=== PATIENT | male | born 1995 ===

== ENCOUNTER 2016-11-14 09:40 | Inpatient (IN) | payer MEDICAID ==
[2016-11-14 09:57] VITALS: O2SAT 97; BMI 29.0
[2016-11-19 07:25] VITALS: BP 100/63; PULSE 67; RESP 20; TEMP 97.8
== END 2016-11-19 13:17 | disposition home or self-care (01) | DRG 744 ==
LOC: C.ER 09:40 → C.5E 10:30
PROVIDERS: ADMIT Psychiatry & Neurology Psychiatry; ATTEND Psychiatry & Neurology Psychiatry
PROC: HZ2ZZZZ Detoxification Services for Substance Abuse Treatment (ICD-10-PCS; principal; 2016-11-14)
PROC: HZ52ZZZ Individual Psychotherapy for Substance Abuse Treatment, Cognitive-Behavioral (ICD-10-PCS; 2016-11-14)
PROC: GZHZZZZ Group Psychotherapy (ICD-10-PCS; 2016-11-14)
PROC: HZ59ZZZ Individual Psychotherapy for Substance Abuse Treatment, Supportive (ICD-10-PCS; 2016-11-14)
PROC: HZ56ZZZ Individual Psychotherapy for Substance Abuse Treatment, Psychoeducation (ICD-10-PCS; 2016-11-14)
DX: F11.23 Opioid dependence with withdrawal (principal); F33.2 Major depressive disorder, recurrent severe without psychotic features; R45.851 Suicidal ideations; B19.20 Unspecified viral hepatitis C without hepatic coma; F41.9 Anxiety disorder, unspecified; F17.210 Nicotine dependence, cigarettes, uncomplicated; Z59.0 Homelessness

== ENCOUNTER 2016-11-23 13:28 | Observation (INO) | payer MEDICAID ==
[2016-11-23 13:29] VITALS: BMI 29.0
--- NOTE | 2016-11-23 14:05 | C.PDOC ---
Addendum entered and electronically signed by Emmett Abdul MD 11/24/16 05:04: ED OBSERVATION - Progress Note Progress Note: 11/24/16 05:03 vitals stable, no complaints Physician Patient Turnover Patient Signed Over To: Charity Wilson Handoff Comments: pending evaluation by dr lopez, psychiatrist Original Note: History Of Present Illness <Beena Adames - Last Filed: 11/23/16 18:51> <Emmett Abdul - Last Filed: 11/24/16 05:03> <Charity Wilson - Last Filed: 11/24/16 08:30> Daniel Harris, a 21 year old male, presents to the ED with suicidal ideations. The patient states he was discharged from the psychiatric unit of [facility] a few days ago. Patient is known to crisis, who said he was homeless. Patient is calm in the ED sitting in the hallway. (Beena Adames) History Per: Patient History/Exam Limitations: no limitations Current Symptoms Are (Timing): Still Present Associated Symptoms: Suicidal Thoughts <Beena Adames - Last Filed: 11/23/16 18:51> <Emmett Abdul - Last Filed: 11/24/16 05:03> <Charity Wilson - Last Filed: 11/24/16 08:30> Time Seen by Provider: 11/23/16 13:51 Chief Complaint (Nursing): Psychiatric Evaluation Past Medical History Reviewed: Historical Data - Medical History PMH: Denies: HIV, Chronic Kidney Disease Family History: States: Unknown Family Hx - Social History Hx Alcohol Use: Yes Hx Substance Use: Yes - Immunization History Hx Tetanus Toxoid Vaccination: No Hx Influenza Vaccination: No Hx Pneumococcal Vaccination: No <Beena Adames - Last Filed: 11/23/16 18:51> Review Of Systems Except As Marked, All Systems Reviewed And Found Negative. Constitutional: Negative for: Fever Psych: Positive for: Suicidal ideation <Beena Adames - Last Filed: 11/23/16 18:51> Physical Exam - Physical Exam Appears: Well, Non-toxic, No Acute Distress Skin: Normal Color, Warm, Dry Head: Atraumatic, Normacephalic Eye(s): bilateral: Normal Inspection, PERRL, EOMI Ear(s): Bilateral: Normal Nose: Normal Oral Mucosa: Moist Tongue: Normal Appearing Lips: Normal Appearing Teeth: Normal Dentition Gingiva: Normal Appearing Throat: Normal Neck: Normal, Normal ROM, Supple Lymphatic: Normal Exam Cardiovascular: Rhythm Regular, No Murmur Respiratory: Normal Breath Sounds, No Rales, No Rhonchi, No Wheezing Gastrointestinal/Abdominal: Normal Exam, Bowel Sounds, Soft, No Tenderness, No Guarding, No Rebound Back: Normal Inspection, No CVA Tenderness Extremity: Normal ROM, No Tenderness, No Deformity, No Swelling Neurological/Psych: Oriented x3, Normal Speech, Normal Cognition Gait: Steady <Beena Adames - Last Filed: 11/23/16 18:51> ED Course And Treatment - Laboratory Results Result Diagrams: 11/23/16 14:13 11/23/16 14:13 Lab Interpretation: Normal O2 Sat by Pulse Oximetry: 97 (RA) Pulse Ox Interpretation: Normal Progress Note: Case discussed and patient evaluated by crisis department. Case discussed with psychiatrist Dr Jordan business applications developer who requests ED OBS and she will evaluate in AM Reassessment Condition: Unchanged - Physician Consult Information Physician Contacted: Xenia Lopez Outcome Of Conversation: keep in ED obs <Beena Adames - Last Filed: 11/23/16 18:51> - Laboratory Results Result Diagrams: 11/23/16 14:13 11/23/16 14:13 <Emmett Abdul - Last Filed: 11/24/16 05:03> - Laboratory Results Result Diagrams: 11/23/16 14:13 11/23/16 14:13 <Charity Wilson - Last Filed: 11/24/16 08:30> Medical Decision Making <Beena Adames - Last Filed: 11/23/16 18:51> <Emmett Abdul - Last Filed: 11/24/16 05:03> <Charity Wilson - Last Filed: 11/24/16 08:30> Medical Decision Makin Initial Impression: 21 year old male presenting with suicidal ideations Initial Plan: * Alcohol Serum * CMP * Drug Screen * CBC * Urinalysis * Reevaluation * * Patient on 1:1 for SI * * Evaluated multiple times by crisis team * * Remains calm requesting medication for anxiety (Beena Adames) Disposition - Disposition Disposition Time: 17:00 - POA Present On Arrival: None <Beena Adames - Last Filed: 11/23/16 18:51> <Emmett Abdul - Last Filed: 11/24/16 05:03> <Charity Wilson - Last Filed: 11/24/16 08:30> - Disposition Condition: STABLE - Clinical Impression Clinical Impression: Depression, Opioid abuse - Scribe Statement The provider has reviewed the documentation as recorded by the Scribe <Beena Adames - Last Filed: 11/23/16 18:51> <Emmett Abdul - Last Filed: 11/24/16 05:03> <Charity Wilson - Last Filed: 11/24/16 08:30> - Scribe Statement Smita Kaur All medical record entries made by the Scribe were at my direction and personally dictated by me. I have reviewed the chart and agree that the record accurately reflects my personal performance of the history, physical exam, medical decision making, and the department course for this patient. I have also personally directed, reviewed, and agree with the discharge instructions and disposition. (Beena Adames) Addendum <Beena Adames - Last Filed: 11/23/16 18:51> <Charity Wilson - Last Filed: 11/24/16 08:30> Addendum: 11/24/16 08:28 Patient endorsed to me pending re-evaluation by psych. Patient slept comfortably overnight. As per crisis patient will be transferred due to no beds. EKG NSR Chest X Ray WNL Patient medically cleared for psych admission and/or transfer (Charity Wilson)
[2016-11-23 14:17] LABS: BASO % 0.2 % (0.0-2.0); EOS # 0.1 K/uL (0.0-0.7); EOS % 1.9 % (0.0-4.0); HEMATOCRIT 46.7 % (35.0-51.0); LYMPH # 1.5 K/uL (1.0-4.3); LYMPH % 28.4 % (20.0-40.0); MEAN CELL VOLUME 89.5 fL (80.0-94.0); MEAN CORPUSCULAR HEMOGLOBIN 30.7 pg (27.0-31.0); MEAN CORPUSCULAR HGB CONC 34.3 g/dL (33.0-37.0); MEAN PLATELET VOLUME 6.7 fL (7.2-11.7); MONO # 0.5 K/uL (0.0-0.8); MONO % 10.2 % (0.0-10.0); NRBC % 0.1 % (0.0-2.0); RED CELL DISTRIBUTION WIDTH 13.6 % (11.5-14.5); WHITE BLOOD COUNT 5.3 K/uL (4.8-10.8)
[2016-11-23 14:25] LABS: CHLORIDE 99 mmol/L (98-107); POTASSIUM 3.9 mmol/L (3.6-5.2); SODIUM 139 mmol/L (132-148)
[2016-11-23 14:27] LABS: ALB/GLOB RATIO 1.2 (1.0-2.1); AST/SGOT 152 U/L (17-59); BILIRUBIN,TOTAL 1.3 mg/dL (0.2-1.3); CARBON DIOXIDE 30 mmol/L (22-30); GFR AFRICAN-AMERICAN > 60; TOTAL PROTEIN 7.4 g/dL (6.3-8.3)
[2016-11-23 14:28] LABS: ALCOHOL SERUM < 10 mg/dl (0-10); ALKALINE PHOSPHATASE 102 U/L (38-126); ALT/SGPT 321 U/L (21-72); BLOOD UREA NITROGEN 8 mg/dL (9-20); CALCIUM 9.5 mg/dl (8.6-10.4); GLUCOSE,RANDOM 96 mg/dL (75-110)
[2016-11-23 15:25] LABS: RBC URINE < 1 /hpf (0-3); URINE BILIRUBIN NEGATIVE (NEGATIVE); URINE BLOOD NEGATIVE (NEGATIVE); URINE COLOR Yellow (YELLOW); URINE GLUCOSE (UA) NORMAL (Normal); URINE KETONE TRACE mg/dL (NEGATIVE); URINE LEUKOCYTE ESTERASE NEG Leu/uL (Negative); URINE PROTEIN NEGATIVE (NEGATIVE); WBC URINE < 1 /hpf (0-5)
[2016-11-24 11:17] VITALS: BP 131/75; PULSE 100; RESP 18; TEMP 98.4; O2SAT 98
--- NOTE | 2016-11-24 12:45 | RAD ---
PROCEDURE: CHEST RADIOGRAPH, 1 VIEW HISTORY: psych clearance COMPARISON: None available. FINDINGS: LUNGS: Clear. PLEURA: No pneumothorax or pleural fluid seen. CARDIOVASCULAR: Normal. OSSEOUS STRUCTURES: No significant abnormalities. VISUALIZED UPPER ABDOMEN: Normal. OTHER FINDINGS: None. IMPRESSION: No active disease.
--- NOTE | 2016-11-25 20:51 | CARD ---
APPROVED REPORT EKG Measurement Heart [id number] <Conclusion> Normal sinus rhythm with sinus arrhythmia Minimal voltage criteria for LVH, may be normal variant High j junction maybe due to early repolarization or Acute pericarditis Abnormal ECG
== END 2016-11-24 11:30 | disposition home or self-care (01) ==
LOC: C.ER 13:28 → C.9OBSV 17:19
PROVIDERS: ADMIT Emergency Medicine; ATTEND Emergency Medicine
DX: F11.10 Opioid abuse, uncomplicated (principal); R45.851 Suicidal ideations; Z59.0 Homelessness; F32.89 Other specified depressive episodes

== ENCOUNTER 2017-07-27 20:19 | Inpatient (IN) | payer MEDICAID ==
[2017-07-27 20:19] VITALS: BMI 29.0
[2017-07-27 20:54] LABS: BASO # 0.1 K/uL (0.0-0.2); BASO % 0.5 % (0.0-2.0); EOS # 0.2 K/uL (0.0-0.7); EOS % 2.2 % (0.0-4.0); HEMOGLOBIN 17.3 g/dL (12.0-18.0); LYMPH % 29.6 % (20.0-40.0); MEAN CELL VOLUME 88.9 fL (80.0-94.0); MEAN CORPUSCULAR HEMOGLOBIN 31.1 pg (27.0-31.0); MEAN CORPUSCULAR HGB CONC 34.9 g/dL (33.0-37.0); MEAN PLATELET VOLUME 7.2 fL (7.2-11.7); MONO # 0.8 K/uL (0.0-0.8); MONO % 8.2 % (0.0-10.0); NEUT % 59.5 % (50.0-75.0); NRBC % 0.3 % (0.0-2.0); RBC 5.57 Mil/uL (4.40-5.90); RED CELL DISTRIBUTION WIDTH 13.4 % (11.5-14.5); WHITE BLOOD COUNT 10.1 K/uL (4.8-10.8)
[2017-07-27 20:58] LABS: SQUAMOUS EPITHIAL < 1 /hpf (0-5); URINE BACTERIA RARE (<OCC); URINE BILIRUBIN NEGATIVE (NEGATIVE); URINE BLOOD NEGATIVE (NEGATIVE); URINE CLARITY Hazy (Clear); URINE COLOR Amber (YELLOW); URINE GLUCOSE (UA) NORMAL (Normal); URINE LEUKOCYTE ESTERASE NEG Leu/uL (Negative); URINE PROTEIN NEGATIVE (NEGATIVE)
[2017-07-27 21:11] LABS: ALBUMIN 4.5 g/dL (3.5-5.0); ALT/SGPT 89 U/L (21-72); AST/SGOT 56 U/L (17-59); BLOOD UREA NITROGEN 12 mg/dL (9-20); CALCIUM 9.2 mg/dl (8.6-10.4); GFR AFRICAN-AMERICAN > 60; GFR NON-AFRICAN AMERICAN > 60
[2017-07-27 21:14] LABS: PHENCYCLIDINE, UR NEGATIVE (NEGATIVE)
[2017-07-27 21:15] LABS: BARBITURATES, UR POSITIVE (NEGATIVE); BENZODIAZEPINES, UR POSITIVE (NEGATIVE); OPIATES, UR POSITIVE (NEGATIVE)
--- NOTE | 2017-07-27 21:28 | C.PDOC ---
History Of Present Illness <Beena Mendez - Last Filed: 07/27/17 21:45> <Marilou Ho - Last Filed: 07/28/17 01:01> 22 year old male presents to the emergency department requesting detox from heroin and other substances. Patient confirms to using IV heroin, and has a past medical history of Hepatitis C and psychiatric depression. Patient denies other physical complaints, and suicidal/homicidal ideation. (Beena Mendez) History Per: Patient History/Exam Limitations: no limitations Current Symptoms Are (Timing): Still Present Suicide/Self Injury Attempted (Context): None <Beena Mendez - Last Filed: 07/27/17 21:45> <Marilou Ho - Last Filed: 07/28/17 01:01> Time Seen by Provider: 07/27/17 20:38 Chief Complaint (Nursing): Substance Abuse Past Medical History Reviewed: Historical Data, Nursing Documentation, Vital Signs - Medical History PMH: Depression, Hepatitis (C) Denies: Providence's Disease, Benign Prostatic Hyperplasia, Diabetes, HIV ( Tested negative), HTN, Chronic Kidney Disease, Seizures, Sexually Transmitted Disease Surgical History: No Surg Hx Family History: States: No Known Family Hx - Social History Hx Alcohol Use: No (Denied) Hx Substance Use: Yes (heroin) - Immunization History Hx Tetanus Toxoid Vaccination: No Hx Influenza Vaccination: No Hx Pneumococcal Vaccination: No <Beena Mendez - Last Filed: 07/27/17 21:45> Vital Signs: Last Vital Signs Temp 98.7 F 07/27/17 22:23 Pulse 100 H 07/27/17 22:23 Resp 18 07/27/17 22:23 BP 115/73 07/27/17 22:23 Pulse Ox 98 07/27/17 22:23 - [facility] Procedures DETOXIFICATION SERVICES FOR SUBSTANCE ABUSE TREATMENT (04/21/17) GROUP VP REVENUE CYCLE FOR SUBSTANCE ABUSE TREATMENT, PSYCHOEDUCATION (04/21/17) GROUP VP REVENUE CYCLE FOR SUBSTANCE ABUSE, COGNITIVE BEHAVIORAL (04/21/17) GROUP PSYCHOTHERAPY (11/14/16) INDIV PSYCHOTHERAPY FOR SUBSTANCE ABUSE TREATMENT, SUPPORT (04/21/17) INDIV PSYCHOTHERAPY FOR SUBSTANCE ABUSE, COGNITIV BEHAVIORAL (04/21/17) INDIV PSYCHOTHERAPY FOR SUBSTANCE ABUSE, PSYCHOEDUCATION (04/21/17) Review Of Systems Psych: Negative for: Suicidal ideation, Other (homicidal ideation) <Beena Mendez - Last Filed: 07/27/17 21:45> Physical Exam - Physical Exam Appears: Non-toxic Skin: No Rash Head: Atraumatic, Normacephalic Eye(s): bilateral: PERRL, EOMI Neck: Supple Cardiovascular: Rhythm Regular Respiratory: Normal Breath Sounds Gastrointestinal/Abdominal: Normal Exam, Soft, No Tenderness Extremity: Other (visible syringe sharp on antecubital fossa of both arms, uninfected.) <Beena Mendez - Last Filed: 07/27/17 21:45> ED Course And Treatment - Laboratory Results Result Diagrams: 07/27/17 20:49 07/27/17 20:49 O2 Sat by Pulse Oximetry: 97 (RA) Pulse Ox Interpretation: Normal Progress Note: Plan: Alcohol Serum. CMP. CBC. Drug Screen. Urinalysis <Beena Mendez - Last Filed: 07/27/17 21:45> - Laboratory Results Result Diagrams: 07/27/17 20:49 07/27/17 20:49 <Marilou Ho E - Last Filed: 07/28/17 01:01> Disposition <Beena Mendez - Last Filed: 07/27/17 21:45> - Disposition Disposition Time: 01:00 <Marilou Ho - Last Filed: 07/28/17 01:01> - Disposition Condition: STABLE - Clinical Impression Clinical Impression: Drug abuse - PA / CAPACITOR TESTER / Resident Statement CHRISSY has reviewed & agrees with the documentation as recorded. - Scribe Statement The provider has reviewed the documentation as recorded by the Scribe (Jose Sumnerqvi) <Beena Mendez - Last Filed: 07/27/17 21:45> - PA / CAPACITOR TESTER / Resident Statement CHRISSY has reviewed & agrees with the documentation as recorded. <Marilou Ho - Last Filed: 07/28/17 01:01> - Scribe Statement All medical record entries made by the Scribe were at my direction and personally dictated by me. I have reviewed the chart and agree that the record accurately reflects my personal performance of the history, physical exam, medical decision making, and the department course for this patient. I have also personally directed, reviewed, and agree with the discharge instructions and disposition. 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 <Marilou Ho E - Last Filed: 07/28/17 01:01>
--- NOTE | 2017-07-28 02:52 | PCM.BM ---
<Caroline Dolan - Last Filed: 07/28/17 02:51> Treatment Plan Problems - Problems identified on initial assessmt Ineffective Coping Skills Date Initiated: 07/28/17 Time Initiated: 02:52 Assessment reference: NA Status: Active Treatment assets and liabiliti Patient Assests: cognitively intact, cooperative, insightful, motivated, self- reliant, ADL independent, physically healthy Patient Liabilities: substance abuse - Milieu Protocol Maintain good personal hygiene: daily Encourage regular showers, daily Remind patient to perform daily oral care, other Assist patient to perform ADL's Maintain personal safety: every shift Educate patient to report safety concerns to staff, every shift Monitor environment for contraband/sharps Medication safety: Monitor for expected outcome, potential side effects: every shift, Assess barriers to learning: every shift, Assess readiness for medication education: every shift <Greg Ascencio - Last Filed: 07/28/17 13:20> - Diagnosis (1) Opioid use disorder, severe, dependence Status: Acute Interventions: 07/28/17 13:20 * Assess 7x/week regarding severity of withdrawal * Educate regarding risks, benefits, side effects and alternatives of medications * Use Motivational Interviewing for abstinence * Use CBT for relapse prevention * Medication management for withdrawal symptoms * Encourage medication assisted treatment * <Emma Purvis - Last Filed: 07/31/17 07:54> Family Contact Family involvement: Phoebe/SO not involved - Goals for Treatment Patient goals for treatment: Complete detox and transition to IOP. Discharge/Continuing Care - Education Needs Education Needs: Patient Medication, Patient Diagnosis/Disease Process, Patient Coping Skills, Patient Anger Management skills, Patient Placement options, Patient Community resources - Discharge Discharge Criteria: No longer exhibiting s/s of withdrawal, Reduction of target symptoms Discharge to:: Home - Treatment Team Participation Patient/Family/SO Statement: 07/31/17 07:53 "I wanna go to IOP at [facility]." Discussed with Family/SO: No Was Patient/Family/SO present at Treatment Team Meeting: Yes
[2017-07-28] MEDS ORDERED: Aluminum Hydroxide/Magnesium Hydroxide Susp (30 mL) PO PRN (12:05)
--- NOTE | 2017-07-28 12:11 | PCM.PSYCH ---
Initial Psychiatric Evaluation - Initial Psychiatric Evaluation Type of Admission: Voluntary Legal Status: Capacity Chief Complaint (in patient's own words): "heroin" History of Present Illness and Precipitating Events: The patient is seen, chart reviewed and case discussed. This a 22-year-old male, lives with father and sometimes with his friend. 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 He is known from previous admission. The patient was here for detox last year and he was supposed to go to [facility] in [place] but he states he did not go. He relapsed within the few weeks and since then he has been using 12 backs IV heroine, intranasal cocaine which she stopped about a month ago marijuana which he also stopped 2 weeks ago and finally Xanax 10 mg a day. Next line he reports some withdrawal symptoms already. He now states he really wants to go to a rehabilitation. This is his second detox. He started all drugs 3 years ago Denies psychiatric problems Past psych hx: Used seroquel and xanax for general anxiety and mild depression Medical hx: Hep C Family psych hx: Denies Current Medications: Active Medications Generic Name Dose Route Start Last Admin Trade Name Freq PRN Reason Stop Dose Admin Al Hydrox/Mg Hydrox/Simethicone 30 ml 07/28/17 12:05 Maalox 30 Ml PO TID PRN Indigestion / Heartburn Chlordiazepoxide 0 mg 07/28/17 12:00 Librium PO 08/02/17 11:59 Q6 EDMOND Taper Chlordiazepoxide 25 mg 07/28/17 12:06 Librium PO Q4H PRN Alcohol Withdrawal Clonidine HCl 0.1 mg 07/28/17 12:05 Catapres PO Q8 PRN COWS Score More or Equal to 5 Gabapentin 300 mg 07/28/17 18:00 Neurontin PO BID EDMOND Hydroxyzine HCl 25 mg 07/28/17 12:08 Atarax PO Q6H PRN Anxiety Ibuprofen 600 mg 07/28/17 12:08 Motrin Tab PO Q6H PRN Pain, moderate (4-7) Loperamide HCl 2 mg 07/28/17 12:05 Imodium PO Q8 PRN Diarrhea Ondansetron HCl 4 mg 07/28/17 12:05 Zofran Tab PO Q8 PRN Nausea/Vomiting Trazodone HCl 50 mg 07/28/17 22:00 Desyrel PO HS [facility] Past Psychiatric History - Past Psychiatric History Previous Treatment History: None Pertinent Medical Hx (Current Medical&Sleep Prob, Allergies): Allergies Allergy/AdvReac Type Severity Reaction Status Date / Time No Known Allergies Allergy Verified 07/27/17 20:32 QUEtiapine [SEROquel] 100 mg PO TID 11/24/16 Alprazolam [Xanax] 1 tab PO DAILY PRN 07/27/17 Escitalopram [Lexapro] 20 mg PO DAILY 07/27/17 Review of Systems - Psychiatric Psychiatric: Abnormal Sleep Pattern, Anxiety, Difficulty Concentrating. absent : Homicidal Ideation, Paranoia, Suicidal Ideation Mental Status Examination - Personal Presentation Personal Presentation: Looks older than stated age - Affect Affect: Constricted - Reliability in Providing Information Reliability in Providing Information: Good - Speech Speech: Organized - Mood Mood: Anxious - Formal Thought Process Formal Thought Process: No Impairment - Cognitive Functions Orientation: Person, Place, Situation, Time Sensorium: Alert Attention/Concentration: Easily distracted Abstract Thinking: [place] Estimate of Intelligence: Average Judgement: Intact, as evidence by: Insight regarding need for hospitalization Memory: Recent intact, as evidence by: Ability to recall events of the day, Remote intact, as evidenced by: Abilit to recall sig. 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 Attend groups and activities Supportive therapy and psychoeducation PA for abstinence CBT for relapse prevention Encourage MAT Refer to rehab or IOP, and self-help groups Smoking cessation with PA Nicotine patch if needed 34 min Projected ELOS: 4-5 days Prognosis: good w treatment Discharge Plan and Discharge Criteria: Rehab referral, consider [facility]At - Smoking Cessation Smoking Cessation Initiated: Yes
--- NOTE | 2017-07-29 12:41 | PCM.PYCHPN ---
Psychiatric Progress Note - Psychiatric Progress Note Patient seen today, length of contact: 16 min Patient Chief Complaint: "I couldn't sleep" Problems Identified/Issues Discussed: The pt is seen, chart reviewed, case discussed with staff. Support given, CBT and [place] used briefly No new symptoms reported, improving slowly and needs more time No SEs from medications, risks discussed. After care discussed Medication Change: Yes (detox changes daily) Medical Record Reviewed: Yes Mental Status Examination - Cognitive Function Orientation: Person, Place, Situation, Time Memory: Intact Attention: WNL Concentration: Poor Association: WNL Fund of Knowledge: WNL - Mood Mood: Anxious - Affect Affect: Constricted - Speech Speech: Appropriate - Formal Thought Process Formal Thought Process: No Impairment - Suicidal Ideation Suicidal Ideation: No - Homicidal Ideation Homicidal Ideation: No Goal/Treatment Plan - Goal/Treatment Plan Need for Continued Stay: Discharge may exacerbated symptoms, Severe functional impairment Progress Toward Problem(s) and Goals/Treatment Plan: Taper with methadone Taper with librium for benzos Gabapentin for augmentation if needed As needed medications All risks, benefits and alternatives of the meds discussed, and the pt agreed and understood. Attend groups and activities Supportive therapy and psychoeducation [place] for abstinence CBT for relapse prevention Encourage MAT Refer to rehab or IOP, and self-help groups Smoking cessation with [place] Nicotine patch if needed
--- NOTE | 2017-07-30 16:24 | PCM.PYCHPN ---
Psychiatric Progress Note - Psychiatric Progress Note Patient seen today, length of contact: 16 min Patient Chief Complaint: "I am doing okay." Problems Identified/Issues Discussed: The pt is seen, chart reviewed, case discussed with staff. Patient states his sleep has improved. Support given, CBT and [place] used briefly No new symptoms reported, improving slowly and needs more time No SEs from medications, risks discussed. Medication Change: Yes (detox changes daily) Medical Record Reviewed: Yes Mental Status Examination - Cognitive Function Orientation: Person, Place, Situation, Time Memory: Intact Attention: WNL Concentration: Poor Association: WNL Fund of Knowledge: WNL - Mood Mood: Neutral - Affect Affect: Broad - Speech Speech: Appropriate - Formal Thought Process Formal Thought Process: No Impairment - Suicidal Ideation Suicidal Ideation: No - Homicidal Ideation Homicidal Ideation: No Goal/Treatment Plan - Goal/Treatment Plan Need for Continued Stay: Discharge may exacerbated symptoms, Severe functional impairment Progress Toward Problem(s) and Goals/Treatment Plan: Continue methadone taper Continue librium taper Continue other medications Support and psychoeducation daily Attend groups and activities daily After care planning by KAYLEY
--- NOTE | 2017-07-31 13:01 | PCM.PYCHPN ---
Psychiatric Progress Note - Psychiatric Progress Note Patient seen today, length of contact: 16 min Patient Chief Complaint: "I am OK" Problems Identified/Issues Discussed: The pt is seen, chart reviewed, case discussed with staff. Support given, CBT and [place] used briefly No new symptoms reported, improving slowly and needs more time No SEs from medications, risks discussed. After care discussed Medication Change: Yes (detox changes daily) Medical Record Reviewed: Yes Mental Status Examination - Cognitive Function Orientation: Person, Place, Situation, Time Memory: Intact Attention: WNL Concentration: Poor Association: WNL Fund of Knowledge: WNL - Mood Mood: Neutral - Affect Affect: Broad - Speech Speech: Appropriate - Formal Thought Process Formal Thought Process: No Impairment - Suicidal Ideation Suicidal Ideation: No - Homicidal Ideation Homicidal Ideation: No Goal/Treatment Plan - Goal/Treatment Plan Need for Continued Stay: Discharge may exacerbated symptoms, Severe functional impairment Progress Toward Problem(s) and Goals/Treatment Plan: Continue methadone taper Continue librium taper Continue other medications Support and psychoeducation daily Attend groups and activities daily After care planning by KAYLEY
[2017-07-31 13:51] VITALS: RESP 18; O2SAT 98
[2017-07-31 16:15] VITALS: BP 120/74; PULSE 98; TEMP 98.4
--- NOTE | 2017-07-31 22:28 | PCM.PYCHDC ---
Mental Status Examination - Mental Status Examination Orientation: Person, Place, Situation, Time Memory: Intact Mood: Anxious Affect: Broad Speech: Appropriate Attention: WNL Concentration: WNL Association: WNL Fund of Knowledge: WNL Formal Thought Process: No Impairment Suicidal Ideation: No Current Homicidal Ideation?: No Discharge Summary - Discharge Note Reason for Hospitalization: Opioid detox Consultations:: List each consultation separately and include: 1. Reason for request. 2. Findings. 3. Follow-up Summary of Hospital Course include:: 1. Description of specific treatment plan utilized for patients during their course of treatmen. 2. Summarize the time- course for resolution of acute symptoms and/or regressed behaviors. 3. Describe issues identified and worked on during hospitalization. 4. Describe medication utilized. 5. Describe medical problems identified and treated. 6. Reassessment of suicide risk Summary of Hospital Course: The patient is seen, chart reviewed and case discussed. On admission: This a 22-year-old male, lives with father and sometimes with his friend. 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 He is known from previous admission. The patient was here for detox last year and he was supposed to go to [facility] in [place] but he states he did not go. He relapsed within the few weeks and since then he has been using 12 backs IV heroine, intranasal cocaine which she stopped about a month ago marijuana which he also stopped 2 weeks ago and finally Xanax 10 mg a day. Next line he reports some withdrawal symptoms already. He now states he really wants to go to a rehabilitation. This is his second detox. He started all drugs 3 years ago Denies psychiatric problems Past psych hx: Used seroquel and xanax for general anxiety and mild depression Medical hx: Hep C Family psych hx: Denies Hospital course: The pt was admitted and started on treatment with psychotherapy, support, psychoeducation and medications. GA and CBT used. The pt attended groups and activities, as well as milieu therapy. All the risks and benefits of medications are discussed and the patient understood and agreed. The pt improved with the treatments provided. After care discussed with the patient. He agreed to go to [facility] but he may be arrested as he had been skipping probation for the last 6 months. He also hooked u with another pt and left 1 day early. 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 Follow after care plan as discussed. Use relapse prevention skills Return to ER or call 911 if suicidal, homicidal or symptoms relapse. Stay away from stress, alcohol and drugs. See primary doctor regularly and get labs.
== END 2017-07-31 18:12 | disposition home or self-care (01) | DRG 744 ==
LOC: C.ER 20:19 → C.7D 07-28 02:13
PROVIDERS: ADMIT Psychiatry & Neurology Psychiatry; ATTEND Psychiatry & Neurology Psychiatry
PROC: HZ2ZZZZ Detoxification Services for Substance Abuse Treatment (ICD-10-PCS; principal; 2017-07-28)
PROC: HZ52ZZZ Individual Psychotherapy for Substance Abuse Treatment, Cognitive-Behavioral (ICD-10-PCS; 2017-07-28)
PROC: HZ59ZZZ Individual Psychotherapy for Substance Abuse Treatment, Supportive (ICD-10-PCS; 2017-07-28)
PROC: HZ56ZZZ Individual Psychotherapy for Substance Abuse Treatment, Psychoeducation (ICD-10-PCS; 2017-07-28)
PROC: HZ42ZZZ Group Counseling for Substance Abuse Treatment, Cognitive-Behavioral (ICD-10-PCS; 2017-07-28)
PROC: HZ46ZZZ Group Counseling for Substance Abuse Treatment, Psychoeducation (ICD-10-PCS; 2017-07-28)
DX: F11.23 Opioid dependence with withdrawal (principal); N18.9 Chronic kidney disease, unspecified; E11.22 Type 2 diabetes mellitus with diabetic chronic kidney disease; E27.1 Primary adrenocortical insufficiency; B19.20 Unspecified viral hepatitis C without hepatic coma; F13.230 Sedative, hypnotic or anxiolytic dependence with withdrawal, uncomplicated; F12.90 Cannabis use, unspecified, uncomplicated; F14.90 Cocaine use, unspecified, uncomplicated; F41.1 Generalized anxiety disorder; I12.9 Hypertensive chronic kidney disease with stage 1 through stage 4 chronic kidney disease, or unspecified chronic kidney disease; F32.9 Major depressive disorder, single episode, unspecified; Z86.19 Personal history of other infectious and parasitic diseases

== ENCOUNTER 2017-09-15 14:53 | Inpatient (IN) | payer MEDICAID ==
[2017-09-15 14:53] VITALS: BMI 29.0
[2017-09-15 15:37] LABS: BASO % 0.4 % (0.0-2.0); EOS # 0.1 K/uL (0.0-0.7); EOS % 2.7 % (0.0-4.0); LYMPH # 2.6 K/uL (1.0-4.3); LYMPH % 50.3 % (20.0-40.0); MEAN CELL VOLUME 89.6 fL (80.0-94.0); MEAN CORPUSCULAR HEMOGLOBIN 31.3 pg (27.0-31.0); MEAN CORPUSCULAR HGB CONC 34.9 g/dL (33.0-37.0); MEAN PLATELET VOLUME 7.1 fL (7.2-11.7); MONO # 0.6 K/uL (0.0-0.8); MONO % 11.1 % (0.0-10.0); NEUT # 1.9 K/uL (1.8-7.0); NEUT % 35.5 % (50.0-75.0); NRBC % 0.1 % (0.0-2.0); RBC 4.58 Mil/uL (4.40-5.90); RED CELL DISTRIBUTION WIDTH 13.7 % (11.5-14.5); WHITE BLOOD COUNT 5.3 K/uL (4.8-10.8)
[2017-09-15 15:41] LABS: URINE BACTERIA RARE (<OCC); URINE BILIRUBIN NEGATIVE (NEGATIVE); URINE BLOOD NEGATIVE (NEGATIVE); URINE CALCIUM OXALATE CRYSTALS RARE /hpf (<OCC); URINE CLARITY Clear (Clear); URINE COLOR Yellow (YELLOW); URINE GLUCOSE (UA) NORMAL (Normal); URINE LEUKOCYTE ESTERASE NEG Leu/uL (Negative); URINE PROTEIN NEGATIVE (NEGATIVE); URINE UROBILINOGEN NORMAL mg/dL (0.2-1.0)
[2017-09-15 15:46] LABS: HEMOGLOBIN 14.3 g/dL (12.0-18.0)
[2017-09-15 15:54] LABS: ALBUMIN 3.6 g/dL (3.5-5.0); ALT/SGPT 117 U/L (21-72); AST/SGOT 58 U/L (17-59); BARBITURATES, UR NEGATIVE (NEGATIVE); BLOOD UREA NITROGEN 7 mg/dL (9-20); CALCIUM 8.8 mg/dl (8.6-10.4); GFR AFRICAN-AMERICAN > 60; GFR NON-AFRICAN AMERICAN > 60; PHENCYCLIDINE, UR NEGATIVE (NEGATIVE)
[2017-09-15 15:55] LABS: BENZODIAZEPINES, UR POSITIVE (NEGATIVE); OPIATES, UR POSITIVE (NEGATIVE)
--- NOTE | 2017-09-15 16:26 | C.PDOC ---
History Of Present Illness 22 year old male presents to ED requesting detox from heroin and xanax. He last used heroin today at noon and xanax yesterday. Denies any alcohol or other drug use. Denies any suicidal or homicidal ideation. Time Seen by Provider: 09/15/17 15:16 Chief Complaint (Nursing): Medical Clearance History Per: Patient History/Exam Limitations: no limitations Suicide/Self Injury Attempted (Context): None Past Medical History Reviewed: Historical Data, Nursing Documentation, Vital Signs Vital Signs: Last Vital Signs Temp 98.3 F 09/15/17 14:58 Pulse 93 H 09/15/17 14:58 Resp 20 09/15/17 14:58 BP 117/72 09/15/17 14:58 Pulse Ox 100 09/15/17 16:26 - Medical History PMH: Anxiety, Depression, Hepatitis (Hep C) - [facility] Procedures DETOXIFICATION SERVICES FOR SUBSTANCE ABUSE TREATMENT (07/28/17) GROUP CHAIN TESTING MACHINE OPERATOR FOR SUBSTANCE ABUSE TREATMENT, PSYCHOEDUCATION (07/28/17) GROUP CHAIN TESTING MACHINE OPERATOR FOR SUBSTANCE ABUSE, COGNITIVE BEHAVIORAL (07/28/17) GROUP PSYCHOTHERAPY (11/14/16) INDIV PSYCHOTHERAPY FOR SUBSTANCE ABUSE TREATMENT, SUPPORT (07/28/17) INDIV PSYCHOTHERAPY FOR SUBSTANCE ABUSE, COGNITIV BEHAVIORAL (07/28/17) INDIV PSYCHOTHERAPY FOR SUBSTANCE ABUSE, PSYCHOEDUCATION (07/28/17) Family History: States: Unknown Family Hx - Social History Hx Alcohol Use: Yes (occasional 1-2X a year) Hx Substance Use: Yes - Immunization History Hx Tetanus Toxoid Vaccination: No Hx Influenza Vaccination: No Hx Pneumococcal Vaccination: No Review Of Systems Except As Marked, All Systems Reviewed And Found Negative. Psych: Positive for: Other (drug abuse) Physical Exam - Physical Exam Appears: Non-toxic, No Acute Distress Skin: Warm, Dry Head: Atraumatic, Normacephalic Eye(s): bilateral: Normal Inspection Neck: Normal ROM Chest: Symmetrical Cardiovascular: Rhythm Regular Respiratory: Normal Breath Sounds, No Wheezing Extremity: Bilateral: Atraumatic, Normal ROM Neurological/Psych: Oriented x3, Normal Speech ED Course And Treatment - Laboratory Results Result Diagrams: 09/15/17 15:31 09/15/17 15:31 O2 Sat by Pulse Oximetry: 100 Medical Decision Making Medical Decision Making: Labs ordered for medical clearance. All labs reviewed. UDS +opiate, benzo and cannabis. In my clinical judgment patient is medically cleared and stable for admission. delinquency prevention social worker contacted for evaluation. As per Ping patient is to be admitted to DR Ascencio service for opiate use disorder Disposition - Disposition Disposition: HOSPITALIZED Disposition Time: 16:32 Condition: STABLE - POA Present On Arrival: None - Clinical Impression Clinical Impression: Opioid use disorder, severe, dependence, Benzodiazepine abuse Decision To Admit - Pt Status Changed To: Hospital Disposition Of: Inpatient - Admit Certification Admit to Inpatient:: After my assessment, the patient will require hospitalization for at least two midnights. This is because of the severity of symptoms shown, intensity of services needed, and/or the medical risk in this patient being treated as an outpatient. - InPatient: Physician Admission Certification: I certify that this patient requires 2 or more midnights of care for the following reason:: Patient needs inpatient detox for opiate and benzo use - . Bed Request Type: Detox Admitting Physician: Greg Ascencio Patient Diagnosis: Opioid use disorder, severe, dependence, Benzodiazepine abuse
--- NOTE | 2017-09-15 17:29 | PCM.BM ---
<Diana Ríos - Last Filed: 09/15/17 17:27> Treatment Plan Problems - Problems identified on initial assessmt Potential for benzo withdrawal Date Initiated: 09/15/17 Time Initiated: 17:28 Assessment reference: NA Status: Active Priority: 1 Potential for opiate withdrawal Date Initiated: 09/15/17 Time Initiated: 17:28 Assessment reference: NA Status: Active Priority: 2 Treatment assets and liabiliti Patient Assests: cooperative, insightful, motivated, self-reliant, ADL independent, physically healthy, cognitively intact Patient Liabilities: substance abuse, other (homeless) - Milieu Protocol Maintain good personal hygiene: daily Encourage regular showers, daily Remind patient to perform daily oral care, daily Assist patient to perform ADL's Conduct patient checks and document Observation sheet: Q15 minutes Maintain personal safety: every shift Educate patient to report safety concerns to staff, every shift Monitor environment for contraband/sharps Medication safety: Monitor for expected outcome, potential side effects: every shift, Assess barriers to learning: every shift, Assess readiness for medication education: every shift <Greg Ascencio - Last Filed: 09/16/17 13:45> - Diagnosis (1) Opioid use disorder, severe, dependence Status: Acute Interventions: 09/16/17 13:46 * Assess 7x/week regarding severity of withdrawal * Educate regarding risks, benefits, side effects and alternatives of medications * Use Motivational Interviewing for abstinence * Use CBT for relapse prevention * Medication management for withdrawal symptoms * Encourage medication assisted treatment * <Emma Purvis - Last Filed: 09/17/17 08:10> Family Contact Family involvement: Mikiliy/SO not involved - Goals for Treatment Patient goals for treatment: Complete detox and transition to LTR at [facility]. Discharge/Continuing Care - Education Needs Education Needs: Patient Medication, Patient Diagnosis/Disease Process, Patient Coping Skills, Patient Anger Management skills, Patient Placement options, Patient Community resources - Discharge Discharge Criteria: No longer exhibiting s/s of withdrawal, Reduction of target symptoms Discharge to:: Substance Abuse Rehab - Treatment Team Participation Patient/Family/SO Statement: 09/17/17 08:10 "I wanna try to get in to the [facility] if I can..." Discussed with Family/SO: No Was Patient/Family/SO present at Treatment Team Meeting: Yes
[2017-09-16] MEDS ORDERED: Buprenorphine Hydrochloride 2 mg SL ONE ×2 (10:18→11:30)
--- NOTE | 2017-09-16 13:47 | PCM.PSYCH ---
Initial Psychiatric Evaluation - Initial Psychiatric Evaluation Type of Admission: Voluntary Legal Status: Capacity Chief Complaint (in patient's own words): "I relapsed" History of Present Illness and Precipitating Events: The patient is seen, chart reviewed and case discussed. 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 He is known from previous admissions. The patient was here for detox few months ago and he was supposed to go to [facility] in [place] but he states he did not go. He relapsed within the few days and since then he has been using less than 5 bags IV heroin, intranasal cocaine and smoke marijuana. He reports some withdrawal symptoms already. He now states he really wants to go to a rehab or IOP and that he will follow this time b/c he relapsed many times. This is his third detox. He started all drugs 3 years ago Denies psychiatric problems but anxiety and takes lexapro Past psych hx: Used seroquel and xanax for general anxiety and mild depression Medical hx: Hep C Family psych hx: Denies Current Medications: Active Medications Generic Name Dose Route Start Last Admin Trade Name Freq PRN Reason Stop Dose Admin Buprenorphine HCl 0 mg 09/17/17 10:00 Subutex SL 09/20/17 09:59 .TAPER EDMOND Taper Clonidine HCl 0.1 mg 09/15/17 17:29 Catapres PO Q8 PRN COWS Score More or Equal to 5 Escitalopram Oxalate 20 mg 09/16/17 10:00 09/16/17 09:20 Lexapro PO 20 mg DAILY EDMOND Administration Hydroxyzine HCl 25 mg 09/15/17 17:28 09/15/17 21:10 Atarax PO 25 mg Q4H PRN Administration Anxiety Ibuprofen 600 mg 09/15/17 17:28 Motrin Tab PO Q6H PRN Pain, moderate (4-7) Loperamide HCl 2 mg 09/15/17 17:29 Imodium PO Q8 PRN Diarrhea Ondansetron HCl 4 mg 09/15/17 17:29 Zofran Tab PO Q8 PRN Nausea/Vomiting Quetiapine Fumarate 100 mg 09/15/17 22:00 09/15/17 21:10 Seroquel PO 100 mg HS EDMOND Administration Trazodone HCl 100 mg 09/15/17 17:28 09/15/17 21:10 Desyrel PO 100 mg HS PRN Administration Insomnia Past Psychiatric History - Past Psychiatric History Previous Treatment History: Inpatient Pertinent Medical Hx (Current Medical&Sleep Prob, Allergies): Allergies Allergy/AdvReac Type Severity Reaction Status Date / Time No Known Allergies Allergy Verified 09/15/17 15:02 QUEtiapine [SEROquel] 100 mg PO TID 11/24/16 Alprazolam [Xanax] 1 tab PO DAILY PRN 07/27/17 Escitalopram [Lexapro] 20 mg PO DAILY 07/27/17 Review of Systems - Neurological Neurological: UNREMARKABLE - Psychiatric Psychiatric: Abnormal Sleep Pattern, Anxiety, Difficulty Concentrating, Irritability. absent: Hallucinations, Homicidal Ideation, Suicidal Ideation Mental Status Examination - Personal Presentation Personal Presentation: Looks stated age - Affect Affect: Constricted - Motor Activity Motor Activity: Calm - Reliability in Providing Information Reliability in Providing Information: Good - Speech Speech: Organized - Mood Mood: Anxious - Formal Thought Process Formal Thought Process: No Impairment - Cognitive Functions Orientation: Person, Place, Situation, Time Sensorium: Alert Attention/Concentration: Attentive Estimate of Intelligence: Average Judgement: Intact, as evidence by: Insight regarding need for hospitalization Memory: Recent intact, as evidence by: Ability to recall events of the day, Remote intact, as evidenced by: Abilit to recall sig. 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 Attend groups and activities Supportive therapy and psychoeducation [place] for abstinence CBT for relapse prevention Encourage MAT Refer to rehab or IOP, and self-help groups Smoking cessation with [place] Nicotine patch if needed 33 min Projected ELOS: 4 days - Smoking Cessation Smoking Cessation Initiated: Yes
[2017-09-17] MEDS: Buprenorphine Hydrochloride 2 mg SL SCH (09:34)
--- NOTE | 2017-09-17 16:47 | PCM.PYCHPN ---
Psychiatric Progress Note - Psychiatric Progress Note Patient seen today, length of contact: 16 min Patient Chief Complaint: "I am good" Problems Identified/Issues Discussed: The pt is seen, chart reviewed, case discussed with staff. The pt is compliant with medications and reports no side-effects. Symptoms are improving but needs more time to stabilize. After care discussed, support and psychoeducation given. Medication Change: Yes (detox changes daily) Medical Record Reviewed: Yes Mental Status Examination - Cognitive Function Orientation: Person, Place, Situation, Time Memory: Intact Attention: WNL Concentration: WNL Association: WNL Fund of Knowledge: WNL - Mood Mood: Anxious - Affect Affect: Constricted - Speech Speech: Appropriate - Formal Thought Process Formal Thought Process: No Impairment - Suicidal Ideation Suicidal Ideation: No - Homicidal Ideation Homicidal Ideation: No Goal/Treatment Plan - Goal/Treatment Plan Need for Continued Stay: Discharge may exacerbated symptoms, Severe functional impairment Progress Toward Problem(s) and Goals/Treatment Plan: Taper with subutex or methadone Taper with librium for benzos Gabapentin for augmentation if needed Continue Lexapro 20 mg As needed medications All risks, benefits and alternatives of the meds discussed, and the pt agreed and understood. Attend groups and activities Supportive therapy and psychoeducation [place] for abstinence CBT for relapse prevention Encourage MAT Refer to rehab or IOP, and self-help groups Smoking cessation with [place] Nicotine patch if needed Estimated Date of D/C: 09/19/17 - Smoking Cessation Smoking Cessation Initiated: Yes
[2017-09-18] MEDS: Buprenorphine Hydrochloride 2 mg SL SCH (09:41)
--- NOTE | 2017-09-18 11:58 | PCM.PYCHPN ---
Psychiatric Progress Note - Psychiatric Progress Note Patient seen today, length of contact: 15 min Patient Chief Complaint: "I feel better" Problems Identified/Issues Discussed: The pt is seen, chart reviewed, case discussed with staff. Support and psychoeducation given, CBT and [place] used briefly No new symptoms reported, improving slowly and needs more time No SEs from medications, risks discussed. After care discussed - going to [place] rehab tomorrow but very early. Medication Change: Yes (detox changes daily) Medical Record Reviewed: Yes Mental Status Examination - Cognitive Function Orientation: Person, Place, Situation, Time Memory: Intact Attention: WNL Concentration: WNL Association: WNL Fund of Knowledge: WNL - Mood Mood: Anxious - Affect Affect: Constricted - Speech Speech: Appropriate - Formal Thought Process Formal Thought Process: No Impairment - Suicidal Ideation Suicidal Ideation: No - Homicidal Ideation Homicidal Ideation: No Goal/Treatment Plan - Goal/Treatment Plan Need for Continued Stay: Discharge may exacerbated symptoms, Severe functional impairment Progress Toward Problem(s) and Goals/Treatment Plan: Taper with subutex or methadone Taper with librium for benzos Gabapentin for augmentation if needed Continue Lexapro 20 mg As needed medications All risks, benefits and alternatives of the meds discussed, and the pt agreed and understood. Attend groups and activities Supportive therapy and psychoeducation [place] for abstinence CBT for relapse prevention Encourage MAT Refer to rehab or IOP, and self-help groups Smoking cessation with [place] Nicotine patch if needed Estimated Date of D/C: 09/19/17
[2017-09-18 16:42] VITALS: RESP 18
[2017-09-19] MEDS ORDERED: Buprenorphine Hydrochloride 2 mg SL ONE (04:30)
[2017-09-19 05:12] VITALS: BP 110/68; PULSE 80; TEMP 97.6; O2SAT 100
--- NOTE | 2017-09-19 08:29 | PCM.PYCHDC ---
Mental Status Examination - Mental Status Examination Orientation: Person, Place, Situation, Time Memory: Intact Mood: Anxious Affect: Constricted Speech: Appropriate Attention: WNL Concentration: WNL Association: WNL Fund of Knowledge: WNL Formal Thought Process: No Impairment Suicidal Ideation: No Current Homicidal Ideation?: No Discharge Summary - Discharge Note Reason for Hospitalization: Opioid detox Consultations:: List each consultation separately and include: 1. Reason for request. 2. Findings. 3. Follow-up Summary of Hospital Course include:: 1. Description of specific treatment plan utilized for patients during their course of treatmen. 2. Summarize the time- course for resolution of acute symptoms and/or regressed behaviors. 3. Describe issues identified and worked on during hospitalization. 4. Describe medication utilized. 5. Describe medical problems identified and treated. 6. Reassessment of suicide risk Summary of Hospital Course: On admission: The patient is seen, chart reviewed and case discussed. 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 He is known from previous admissions. The patient was here for detox few months ago and he was supposed to go to [facility] in [place] but he states he did not go. He relapsed within the few days and since then he has been using less than 5 bags IV heroin, intranasal cocaine and smoke marijuana. He reports some withdrawal symptoms already. He now states he really wants to go to a rehab or IOP and that he will follow this time b/c he relapsed many times. This is his third detox. He started all drugs 3 years ago Denies psychiatric problems but anxiety and takes lexapro Past psych hx: Used seroquel and xanax for general anxiety and mild depression Medical hx: Hep C Family psych hx: Denies Hospital course: The pt was admitted and started on treatment with psychotherapy, support, psychoeducation and medications. ID and CBT used. The pt attended groups and activities, as well as milieu therapy. All the risks and benefits of medications are discussed and the patient understood and agreed. The pt improved with the treatments provided. After care discussed with the patient. 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 Follow after care plan as discussed. Use relapse prevention skills Return to ER or call 911 if suicidal, homicidal or symptoms relapse. Stay away from stress, alcohol and drugs. See primary doctor regularly and get labs. Prescriptions/Medication Reconciliation: Escitalopram [Lexapro] 20 mg PO DAILY #30 tab QUEtiapine [Seroquel] 100 mg PO HS #30 tab traZODone [Desyrel] 100 mg PO HS PRN #30 tab PRN Reason: Insomnia - Smoking Cessation Smoking Cessation Medication prescribed: No - Antipsychotic Medications Pt discharged on 2 or more routine antipsychotic medications: No
== END 2017-09-19 07:15 | disposition home or self-care (01) | DRG 745 ==
LOC: C.ER 14:53 → C.7D 16:32
PROVIDERS: ADMIT Psychiatry & Neurology Psychiatry; ATTEND Psychiatry & Neurology Psychiatry
PROC: HZ2ZZZZ Detoxification Services for Substance Abuse Treatment (ICD-10-PCS; principal; 2017-09-15)
DX: F11.23 Opioid dependence with withdrawal (principal); F12.90 Cannabis use, unspecified, uncomplicated; F14.90 Cocaine use, unspecified, uncomplicated; F41.1 Generalized anxiety disorder; F13.239 Sedative, hypnotic or anxiolytic dependence with withdrawal, unspecified

== ENCOUNTER 2017-12-07 15:14 | Inpatient (IN) | payer MEDICAID ==
[2017-12-07 15:15] VITALS: BMI 29.0
[2017-12-07 16:09] LABS: BASO % 0.3 % (0.0-2.0); EOS # 0.2 K/uL (0.0-0.7); EOS % 2.1 % (0.0-4.0); HEMOGLOBIN 16.5 g/dL (12.0-18.0); LYMPH # 2.3 K/uL (1.0-4.3); LYMPH % 24.1 % (20.0-40.0); MEAN CELL VOLUME 88.6 fL (80.0-94.0); MEAN CORPUSCULAR HEMOGLOBIN 31.5 pg (27.0-31.0); MEAN CORPUSCULAR HGB CONC 35.5 g/dL (33.0-37.0); MEAN PLATELET VOLUME 7.5 fL (7.2-11.7); MONO # 0.7 K/uL (0.0-0.8); MONO % 7.9 % (0.0-10.0); NEUT # 6.2 K/uL (1.8-7.0); NEUT % 65.6 % (50.0-75.0); RBC 5.25 Mil/uL (4.40-5.90); RED CELL DISTRIBUTION WIDTH 14.3 % (11.5-14.5); SQUAMOUS EPITHIAL < 1 /hpf (0-5); URINE BILIRUBIN NEGATIVE (NEGATIVE); URINE BLOOD 1+ (NEGATIVE); URINE CLARITY Hazy (Clear); URINE COLOR Amber (YELLOW); URINE GLUCOSE (UA) NORMAL (Normal); URINE LEUKOCYTE ESTERASE NEG Leu/uL (Negative); URINE PROTEIN NEGATIVE (NEGATIVE); WHITE BLOOD COUNT 9.4 K/uL (4.8-10.8)
[2017-12-07 16:19] LABS: ALB/GLOB RATIO 1.6 (1.0-2.1); ALBUMIN 4.8 g/dL (3.5-5.0); ALT/SGPT 112 U/L (21-72); AST/SGOT 67 U/L (17-59); BLOOD UREA NITROGEN 14 mg/dL (9-20); CALCIUM 9.3 mg/dl (8.6-10.4); GFR NON-AFRICAN AMERICAN > 60
[2017-12-07 16:34] LABS: BARBITURATES, UR NEGATIVE (NEGATIVE); BENZODIAZEPINES, UR NEGATIVE (NEGATIVE); PHENCYCLIDINE, UR NEGATIVE (NEGATIVE)
[2017-12-07 16:36] LABS: OPIATES, UR POSITIVE (NEGATIVE)
--- NOTE | 2017-12-07 17:21 | C.PDOC ---
History Of Present Illness 22-year-old male presents to the ED requesting alcohol and xanax detox. Patient has history of substance abuse for many years. He denies suicidal/homicidal ideation. Time Seen by Provider: 12/07/17 15:51 Chief Complaint (Nursing): Substance Abuse History Per: Patient History/Exam Limitations: no limitations Onset/Duration Of Symptoms: Hrs Current Symptoms Are (Timing): Still Present Suicide/Self Injury Attempted (Context): None Modifying Factor(s): Alcohol, Other (xanax) Associated Symptoms: denies: Suicidal Thoughts, Suicidal Plan Involuntary Hold By: None Recent travel outside of the [place]: No Additional History Per: Patient Past Medical History Reviewed: Historical Data, Nursing Documentation, Vital Signs Vital Signs: Last Vital Signs Temp 98.4 F 12/07/17 18:39 Pulse 102 H 12/07/17 18:39 Resp 18 12/07/17 18:39 BP 128/70 12/07/17 18:39 Pulse Ox 95 12/07/17 22:57 - Medical History PMH: Anxiety, Bipolar Disorder, Depression Denies: Diabetes, Hepatitis, HIV, HTN, Kidney Stones, Chronic Kidney Disease , Seizures, Sexually Transmitted Disease Surgical History: No Surg Hx - [facility] Procedures DETOXIFICATION SERVICES FOR SUBSTANCE ABUSE TREATMENT (09/15/17) GROUP STILL OPERATOR HELPER FOR SUBSTANCE ABUSE TREATMENT, PSYCHOEDUCATION (07/28/17) GROUP STILL OPERATOR HELPER FOR SUBSTANCE ABUSE, COGNITIVE BEHAVIORAL (07/28/17) GROUP PSYCHOTHERAPY (11/02/17) INDIV PSYCHOTHERAPY FOR SUBSTANCE ABUSE TREATMENT, SUPPORT (07/28/17) INDIV PSYCHOTHERAPY FOR SUBSTANCE ABUSE, COGNITIV BEHAVIORAL (11/02/17) INDIV PSYCHOTHERAPY FOR SUBSTANCE ABUSE, PSYCHOEDUCATION (07/28/17) INDIVIDUAL PSYCHOTHERAPY, COGNITIVE-BEHAVIORAL (11/02/17) Family History: States: Unknown Family Hx - Social History Hx Alcohol Use: No Hx Substance Use: Yes - Immunization History Hx Tetanus Toxoid Vaccination: No Hx Influenza Vaccination: No Hx Pneumococcal Vaccination: No Review Of Systems Psych: Positive for: Other (alcohol and xanax detox ). Negative for: Suicidal ideation Physical Exam - Physical Exam Appears: Non-toxic, No Acute Distress Skin: Normal Color, Warm, Dry, Other (track markson left arm. no abscess ) Head: Atraumatic, Normacephalic Eye(s): bilateral: Other (pinpoint pupils ) Oral Mucosa: Moist Neck: Supple Chest: Symmetrical, No Deformity, No Tenderness Cardiovascular: Rhythm Regular, No Murmur Respiratory: Normal Breath Sounds, No Rales, No Rhonchi, No Wheezing Extremity: Normal ROM, Capillary Refill (less than 2 seconds ) Neurological/Psych: Oriented x3 ED Course And Treatment - Laboratory Results Result Diagrams: 12/07/17 16:03 12/07/17 16:03 Lab Interpretation: Abnormal (tox + opiate, THC , cocaine) O2 Sat by Pulse Oximetry: 95 (on RA) Pulse Ox Interpretation: Normal Progress Note: bloodworkk and urinalysis ordered and reviewed. Reevaluation Time: 17:20 (remains calm) - Physician Consult Information Outcome Of Conversation: 1720: d/w Crisis, ok to admit. Medical Decision Making Medical Decision Making: polysubstance abuse by years benzo abuse by hx- beware withdrawal syndrome/seizures. Consider [facility] protocol PRN Disposition Doctor Will See Patient In The: Hospital Counseled Patient/Family Regarding: Studies Performed, Diagnosis - Disposition Disposition: HOSPITALIZED Disposition Time: 17:22 Condition: GOOD - Clinical Impression Clinical Impression: Opioid use disorder, severe, dependence, Polysubstance (including opioids) dependence, daily use - Scribe Statement The provider has reviewed the documentation as recorded by the Scribe (Lory Hurley) Provider Attestation: All medical record entries made by the Scribe were at my direction and personally dictated by me. I have reviewed the chart and agree that the record accurately reflects my personal performance of the history, physical exam, medical decision making, and the department course for this patient. I have also personally directed, reviewed, and agree with the discharge instructions and disposition.
[2017-12-07] MEDS ORDERED: Aluminum Hydroxide/Magnesium Hydroxide Susp (30 mL) PO PRN (17:44)
--- NOTE | 2017-12-07 17:46 | PCM.BM ---
<Simone Cruz - Last Filed: 12/07/17 17:45> Treatment Plan Problems - Problems identified on initial assessmt potential for opiate abuse Date Initiated: 12/07/17 Time Initiated: 17:45 Status: Active Treatment assets and liabiliti Patient Assests: adapts well, negotiates basic needs, cognitively intact, cooperative, insightful, motivated, resourceful, self-reliant, ADL independent, physically healthy Patient Liabilities: substance abuse, medical problems - Milieu Protocol Maintain good personal hygiene: daily Encourage regular showers, daily Remind patient to perform daily oral care, daily Assist patient to perform ADL's Conduct patient checks and document Observation sheet: Q15 minutes Maintain personal safety: every shift Educate patient to report safety concerns to staff, every shift Monitor environment for contraband/sharps Medication safety: Monitor for expected outcome, potential side effects: every shift, Assess barriers to learning: every shift, Assess readiness for medication education: every shift <Emma Purvis - Last Filed: 12/09/17 10:50> Family Contact Family involvement: Famliy/SO not involved - Goals for Treatment Patient goals for treatment: Complete detox and transition to re-entry inpatient program. Discharge/Continuing Care - Education Needs Education Needs: Patient Medication, Patient Diagnosis/Disease Process, Patient Coping Skills, Patient Anger Management skills, Patient Placement options, Patient Community resources - Discharge Discharge Criteria: No longer exhibiting s/s of withdrawal, Reduction of target symptoms Discharge to:: Other - Additional Comments 12/09/17 10:50 re-entry nursing home house - Treatment Team Participation Discussed with Family/SO: No Was Patient/Family/SO present at Treatment Team Meeting: Yes
[2017-12-08] MEDS ORDERED: Buprenorphine Hydrochloride 2 mg SL ONE ×2 (14:55→16:00)
[2017-12-09] MEDS: Buprenorphine Hydrochloride 2 mg SL SCH (10:35)
--- NOTE | 2017-12-09 10:38 | PCM.PSYCH ---
Initial Psychiatric Evaluation - Initial Psychiatric Evaluation Type of Admission: Voluntary Legal Status: Capacity Chief Complaint (in patient's own words): "I need help" History of Present Illness and Precipitating Events: The patient is seen, chart reviewed and case discussed. 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 He is known from previous admissions. The patient was here for detox few months ago and he was supposed to go to [facility] in [place] but he states he did not go. He relapsed within the few days and since then he has been using less than 5 bags IV heroin, intranasal cocaine and smoke marijuana. He reports some withdrawal symptoms already. He now states he really wants to go to a rehab or IOP and that he will follow this time b/c he relapsed many times. This is his third detox. He started all drugs 3 years ago Denies psychiatric problems but anxiety and takes lexapro Past psych hx: Used seroquel and xanax for general anxiety and mild depression Medical hx: Hep C Family psych hx: Denies Current Medications: Active Medications Generic Name Dose Route Start Last Admin Trade Name Freq PRN Reason Stop Dose Admin Al Hydrox/Mg Hydrox/Simethicone 30 ml 12/07/17 17:44 Maalox 30 Ml PO TID PRN Indigestion / Heartburn Buprenorphine HCl 6 mg 12/09/17 10:00 12/09/17 10:35 Subutex SL 12/12/17 09:59 6 mg DAILY EDMOND Administration Taper Clonidine HCl 0.1 mg 12/07/17 17:44 12/08/17 21:11 Catapres PO 0.1 mg Q8 PRN Administration COWS Score More or Equal to 5 Hydroxyzine HCl 25 mg 12/07/17 17:52 12/08/17 21:11 Atarax PO 25 mg Q4H PRN Administration Anxiety Ibuprofen 600 mg 12/07/17 17:52 Motrin Tab PO Q6H PRN Pain, moderate (4-7) Loperamide HCl 2 mg 12/07/17 17:44 Imodium PO Q8 PRN Diarrhea Ondansetron HCl 4 mg 12/07/17 17:44 Zofran Tab PO Q8 PRN Nausea/Vomiting Trazodone HCl 100 mg 12/07/17 22:00 12/08/17 21:11 Desyrel PO 100 mg HS PRN Administration Anxiety Past Psychiatric History - Past Psychiatric History Previous Treatment History: Inpatient Pertinent Medical Hx (Current Medical&Sleep Prob, Allergies): Allergies Allergy/AdvReac Type Severity Reaction Status Date / Time No Known Allergies Allergy Verified 12/07/17 15:20 QUEtiapine [Seroquel] 100 mg PO TID 12/07/17 Review of Systems - Psychiatric Psychiatric: Abnormal Sleep Pattern, Anhedonia, Anxiety, Change in Appetite, Depression, Difficulty Concentrating, Irritability. 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 Attend groups and activities Supportive therapy and psychoeducation [place] for abstinence CBT for relapse prevention Encourage MAT Refer to rehab or IOP, and self-help groups Smoking cessation with MO Nicotine patch if needed 34 min Projected ELOS: 4-5 days Prognosis: good w treatment
--- NOTE | 2017-12-09 13:28 | PCM.PYCHPN ---
Psychiatric Progress Note - Psychiatric Progress Note Patient seen today, length of contact: 16 min Patient Chief Complaint: "Better" Problems Identified/Issues Discussed: The pt is seen, chart reviewed, case discussed with staff. The pt is compliant with medications and reports no side-effects. Symptoms are improving but needs more time to stabilize. Pt attends groups and activities. Support given, psycho-education provided. After care discussed. Medication Change: Yes (detox changes daily) Medical Record Reviewed: Yes Mental Status Examination - Cognitive Function Orientation: Person, Place, Situation, Time Memory: Intact Attention: WNL Concentration: Poor Association: WNL Fund of Knowledge: WNL - Mood Mood: Anxious - Affect Affect: Constricted - Speech Speech: Appropriate - Formal Thought Process Formal Thought Process: No Impairment - Suicidal Ideation Suicidal Ideation: No - Homicidal Ideation Homicidal Ideation: No Goal/Treatment Plan - Goal/Treatment Plan Need for Continued Stay: Discharge may exacerbated symptoms, Severe functional impairment Progress Toward Problem(s) and Goals/Treatment Plan: Taper with subutex Gabapentin for augmentation if needed As needed medications All risks, benefits and alternatives of the meds discussed, and the pt agreed and understood. Attend groups and activities Supportive therapy and psychoeducation MD for abstinence CBT for relapse prevention Encourage MAT Refer to rehab or IOP, and self-help groups Smoking cessation with [place] Nicotine patch if needed Estimated Date of D/C: 12/12/17
[2017-12-10] MEDS: Buprenorphine Hydrochloride 2 mg SL SCH (09:57)
--- NOTE | 2017-12-10 14:21 | PCM.PYCHPN ---
Psychiatric Progress Note - Psychiatric Progress Note Patient seen today, length of contact: 16 min Patient Chief Complaint: "Not feeling well" Problems Identified/Issues Discussed: The pt is seen, chart reviewed, case discussed with staff. Support and psychoeducation given, CBT and SC used briefly No new symptoms reported, improving slowly and needs more time No SEs from medications, risks discussed. After care discussed Medication Change: Yes (detox changes daily) Medical Record Reviewed: Yes Mental Status Examination - Cognitive Function Orientation: Person, Place, Situation, Time Memory: Intact Attention: WNL Concentration: Poor Association: WNL Fund of Knowledge: WNL - Mood Mood: Anxious - Affect Affect: Constricted - Speech Speech: Appropriate - Formal Thought Process Formal Thought Process: No Impairment - Suicidal Ideation Suicidal Ideation: No - Homicidal Ideation Homicidal Ideation: No Goal/Treatment Plan - Goal/Treatment Plan Need for Continued Stay: Discharge may exacerbated symptoms, Severe functional impairment Progress Toward Problem(s) and Goals/Treatment Plan: Taper with subutex Gabapentin for augmentation if needed As needed medications All risks, benefits and alternatives of the meds discussed, and the pt agreed and understood. Attend groups and activities Supportive therapy and psychoeducation [place] for abstinence CBT for relapse prevention Encourage MAT Refer to rehab or IOP, and self-help groups Smoking cessation with SC Nicotine patch if needed Estimated Date of D/C: 12/12/17
[2017-12-11] MEDS: Buprenorphine Hydrochloride 2 mg SL SCH (10:19)
--- NOTE | 2017-12-12 08:43 | PCM.PYCHDC ---
Mental Status Examination - Mental Status Examination Orientation: Person Discharge Summary - Discharge Note Consultations:: List each consultation separately and include: 1. Reason for request. 2. Findings. 3. Follow-up Summary of Hospital Course include:: 1. Description of specific treatment plan utilized for patients during their course of treatmen. 2. Summarize the time- course for resolution of acute symptoms and/or regressed behaviors. 3. Describe issues identified and worked on during hospitalization. 4. Describe medication utilized. 5. Describe medical problems identified and treated. 6. Reassessment of suicide risk Summary of Hospital Course: The patient is seen, chart reviewed and case discussed. 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 He is known from previous admissions. The patient was here for detox few months ago and he was supposed to go to [facility] in [place] but he states he did not go. He relapsed within the few days and since then he has been using less than 5 bags IV heroin, intranasal cocaine and smoke marijuana. He reports some withdrawal symptoms already. He now states he really wants to go to a rehab or IOP and that he will follow this time b/c he relapsed many times. This is his third detox. He started all drugs 3 years ago Denies psychiatric problems but anxiety and takes lexapro Past psych hx: Used seroquel and xanax for general anxiety and mild depression Medical hx: Hep C Family psych hx: Denies He went to [facility] IOP - Final Diagnosis (DSM 5) Condition upon Discharge: GOOD Disposition: HOME/ ROUTINE Follow-up Treatment Plan: Taper with subutex Gabapentin for augmentation if needed As needed medications All risks, benefits and alternatives of the meds discussed, and the pt agreed and understood. Attend groups and activities Supportive therapy and psychoeducation MO for abstinence CBT for relapse prevention Encourage MAT Refer to rehab or IOP, and self-help groups Smoking cessation with [place] Nicotine patch if needed Prescriptions/Medication Reconciliation: hydrOXYzine HCl [Atarax] 25 mg PO DAILY PRN #30 tab PRN Reason: Anxiety Mirtazapine [Remeron] 15 mg PO HS #30 tab traZODone [Desyrel] 100 mg PO HS PRN #30 tab PRN Reason: Anxiety
[2017-12-12] MEDS ORDERED: Buprenorphine Hydrochloride 2 mg SL ONE (09:00)
[2017-12-12 09:12] VITALS: BP 119/73; PULSE 76; RESP 20; TEMP 97.7; O2SAT 100
--- NOTE | 2017-12-12 15:40 | PCM.PYCHPN ---
Psychiatric Progress Note - Psychiatric Progress Note Patient seen today, length of contact: 16 min Patient Chief Complaint: "Anxious" Problems Identified/Issues Discussed: The pt is seen, chart reviewed, case discussed with staff. The pt is compliant with medications and reports no side-effects. Symptoms are improving but needs more time to stabilize. Pt attends groups and activities. Support given, psycho-education provided. After care discussed. He will return to [facility] and attend IOP but only tomorrow He was very afraid of relapse w/o their help and had wdw sxs Detox extended into tomorrow Medication Change: Yes (detox changes daily) Medical Record Reviewed: Yes Mental Status Examination - Cognitive Function Orientation: Person, Place, Situation, Time Memory: Intact Attention: WNL Concentration: Poor Association: WNL Fund of Knowledge: WNL - Mood Mood: Anxious - Affect Affect: Constricted - Speech Speech: Appropriate - Formal Thought Process Formal Thought Process: No Impairment - Suicidal Ideation Suicidal Ideation: No - Homicidal Ideation Homicidal Ideation: No Goal/Treatment Plan - Goal/Treatment Plan Need for Continued Stay: Discharge may exacerbated symptoms, Severe functional impairment Progress Toward Problem(s) and Goals/Treatment Plan: Taper with subutex Gabapentin for augmentation if needed As needed medications All risks, benefits and alternatives of the meds discussed, and the pt agreed and understood. Attend groups and activities Supportive therapy and psychoeducation [place] for abstinence CBT for relapse prevention Encourage MAT Refer to rehab or IOP, and self-help groups Smoking cessation with [place] Nicotine patch if needed Estimated Date of D/C: 12/12/17
== END 2017-12-12 09:00 | disposition home or self-care (01) | DRG 745 ==
LOC: C.ER 15:14 → C.7D 17:19
PROVIDERS: ADMIT Psychiatry & Neurology Psychiatry; ATTEND Psychiatry & Neurology Psychiatry
PROC: HZ2ZZZZ Detoxification Services for Substance Abuse Treatment (ICD-10-PCS; principal; 2017-12-07)
DX: F11.23 Opioid dependence with withdrawal (principal); F12.90 Cannabis use, unspecified, uncomplicated; F13.20 Sedative, hypnotic or anxiolytic dependence, uncomplicated